=== PATIENT | female | born 1935 | race Caucasian/White ===

== ENCOUNTER 2016-08-25 10:57 | Inpatient (IN) | payer MEDICARE, BC ==
[~2016-08-25] VITALS: Ht 160 cm; Wt 68.0 kg
[~2016-08-25 10:57] MED LIST: GLYB2.5T PO; LISI10TA2 PO; METF-480 PO; MULT-761 PO
[2016-08-25 11:01] VITALS: Ht 160 cm; Wt 68.0 kg
--- NOTE | 2016-08-25 11:09 | ERA ---
ER Documentation Chief Complaint Date/Time DATE: 08/25/16 TIME: 11:08 Chief Complaint Dizziness HPI The patient is a 81-year-old female, presenting to the ER because of generalized weakness, dizziness, headache and abdominal pain that began this morning. The dizziness has gotten better, however she is still complaining of occipital headache. She denies fever, chills, neck pain, chest pain, dyspnea. She complains of diffuse abdominal pain, associated with nausea, vomiting, diarrhea. She has had multiple episodes of vomiting and diarrhea today, denies hematochezia, hematemesis, dysuria. She does not smoke or drink Past medical history: CAD, diabetes mellitus, hypertension, chronic kidney disease. She had a fracture left knee about a month ago, was treated nonsurgically Past surgical history: Stent PCI, cholecystectomy, hemorrhoidectomy ROS All systems reviewed and are negative except as per history of present illness. Medications Home Meds Reported Medications Cholecalciferol* (Vitamin D3*) 1,000 Unit Tablet, 1000 UNIT PO DAILY, TAB 08/25/16 Cyanocobalamin* (Vitamin B12*) 100 Mcg Tab, 100 MCG PO DAILY, TAB 08/25/16 Folic Acid* (Folic Acid*) 1 Mg Tablet, 1 MG PO DAILY, TAB 08/25/16 Rosuvastatin Calcium* (Crestor*) 5 Mg Tablet, 5 MG PO ON FRIDAYS, #30 TAB 08/25/16 Metoprolol Succinate* (Toprol XL*) 25 Mg Tab.sr.24h, 25 MG PO DAILY, #30 TAB 08/25/16 Sitagliptin* (Januvia*) 50 Mg Tablet, 50 MG PO DAILY, #30 TAB 08/25/16 Glimepiride* (Glimepiride*) 4 Mg Tablet, 4 MG PO WITH BREAKFAST DINNE, TAB 08/25/16 Amlodipine Besylate* (Amlodipine Besylate*) 2.5 Mg Tablet, 2.5 MG PO DAILY, #30 TAB 08/25/16 Metformin Hcl* (Metformin Hcl*) 500 Mg Tablet, 500 MG PO WITH BREAKFAST DINNE, # 30 TAB 08/25/16 Lisinopril* (Lisinopril*) 20 Mg Tablet, 20 MG PO DAILY, #30 TAB 08/25/16 Multivitamin (MULTI VITAMIN DAILY) 1 Each Tablet, 1 EACH PO DAILY 10/06/12 Discontinued Reported Medications Glyburide* (Diabeta*) 2.5 Mg Tablet, 10 MG PO BID 10/06/12 Metformin* (Glucophage*) 850 Mg Tablet, 850 MG PO TID 10/06/12 Lisinopril* (Lisinopril*) 10 Mg Tablet, 20 MG PO PM 10/06/12 Allergies Allergies: Coded Allergies: Metronidazole HCl (Verified Allergy, Unknown, UNKNOWN, 08/25/16) ampicillin (Verified Allergy, Unknown, UNKNOWN, 08/25/16) ciprofloxacin (Verified Allergy, Unknown, UNKNOWN, 08/25/16) ciprofloxacin HCl (Verified Allergy, Unknown, UNKNOWN, 08/25/16) metronidazole (Verified Allergy, Unknown, UNKNOWN, 08/25/16) PMhx/Soc History of Surgery: Yes (CHOLECYSTECTOMY/LT BREAST SX) Anesthesia Reaction: No Hx Neurological Disorder: No Hx Respiratory Disorders: No Hx Psychiatric Problems: No Hx Miscellaneous Medical Probl: No Hx Alcohol Use: No Hx Substance Use: No Hx Tobacco Use: No Physical Exam Vitals Vital Signs Date Time Temp Pulse Resp B/P Pulse Ox O2 Delivery O2 Flow Rate FiO2 08/25/16 12:47 98.9 105 16 131/58 100 Room Air 08/25/16 11:01 97.6 98 18 147/77 98 Physical Exam Const: No acute distress. Very anxious Head: Atraumatic. Eyes: Normal Conjunctiva. ENT: Normal External Ears, Nose and Mouth. Neck: Full range of motion. No meningismus. Resp: Clear to auscultation bilaterally. Cardio: Regular rate and rhythm. Abd: Soft, non distended, normal bowel sounds, non tender. Skin: No petechiae or rashes. Back: No midline or flank tenderness. Ext: No cyanosis, or edema. Mild left calf tenderness Neur: Awake and alert. No focal deficit Psych: Normal Mood and Affect. Result Diagram: 08/25/16 1130 08/25/16 1130 Results 24 hrs Laboratory Tests Test 08/25/16 11:30 08/25/16 12:30 White Blood Count 21.410^3/ul Red Blood Count 3.9710^6/ul Hemoglobin 12.5g/dl Hematocrit 37.5% Mean Corpuscular Volume 94.5fl Mean Corpuscular Hemoglobin 31.5pg Mean Corpuscular Hemoglobin Concent 33.3g/dl Red Cell Distribution Width 12.9% Platelet Count 57404^3/UL Mean Platelet Volume 10.5fl Neutrophils % 81.2% Lymphocytes % 7.4% Monocytes % 8.6% Eosinophils % 2.0% Basophils % 0.1% Nucleated Red Blood Cells % 0.0/100WBC Neutrophils # 17.310^3/ul Lymphocytes # 1.610^3/ul Monocytes # 1.910^3/ul Eosinophils # 0.410^3/ul Basophils # 0.010^3/ul Nucleated Red Blood Cells # 0.010^3/ul Prothrombin Time 13.0Sec Prothrombin Time Ratio 1.0 INR International Normalized Ratio 0.98 Activated Partial Thromboplast Time 25.0Sec Sodium Level 133mmol/L Potassium Level 5.2mmol/L Chloride Level 97mmol/L Carbon Dioxide Level 20mmol/L Anion Gap 21 Blood Urea Nitrogen 25mg/dl Creatinine 1.01mg/dl Glucose Level 275mg/dl Calcium Level 11.1mg/dl Total Bilirubin 0.3mg/dl Direct Bilirubin 0.00mg/dl Indirect Bilirubin 0.3mg/dl Aspartate Amino Transf (AST/SGOT) 56IU/L Alanine Aminotransferase (ALT/SGPT) 56IU/L Alkaline Phosphatase 93IU/L Total Protein 8.2g/dl Albumin 5.1g/dl Globulin 3.10g/dl Albumin/Globulin Ratio 1.64 Lipase 245U/L Lactic Acid Level 4.6mmol/L Current Medications Medications (Trade) Dose Ordered Sig/Chayo Route PRN Reason Start Time Stop Time Status Last Admin Dose Admin Vancomycin HCl 250 ml @ 125 mls/hr ONCE IVPB 08/25/16 13:00 08/25/16 14:59 Piperacillin Sod/ Tazobactam Sod 100 ml @ 200 mls/hr ONCE ONCE IVPB 08/25/16 13:00 08/25/16 13:29 Sodium Chloride (NS) 2,110 ml @ 2,110 mls/hr BOLUS X1 ONCE IV 08/25/16 13:00 08/25/16 13:59 Procedures/[address] [address] Radiology Main Line: [phone] DIAGNOSTIC IMAGING REPORT Patient: LUNA CABRERA : 1935 Age: 81 Sex: F MR #: [id number] DOS: 08/25/16 0000 Ordering MD: VENKATESH EVERETT MD Location: E/R Room/Bed: PROCEDURE: US DVT. CLINICAL INDICATION: Lower extremity pain. TECHNIQUE: Multiple longitudinal and transverse images of the left lower extremity veins were obtained with gay scale and color Doppler imaging. 2D grayscale measurements with compression, color Doppler flow, and augmentation was performed. The calf veins were interrogated as well. COMPARISON: No prior studies are available for comparison. FINDINGS: The left common femoral, superficial femoral and popliteal veins are normally compressible throughout. Color flow demonstrates normal filling of the vessel. Normal waveforms are visualized and there is normal response to augmentation. IMPRESSION: 1. No evidence of a deep vein thrombosis involving the left lower extremity. RPTAT: [facility] Physician Shimon Date Time Electronically viewed and signed by Physician Shimon on 08/25/2016 11: 47 JH/ CC: VENKATESH EVERETT MD [place] [address] Radiology Main Line: [phone] DIAGNOSTIC IMAGING REPORT Patient: LUNA CABRERA : 1935 Age: 81 Sex: F MR #: [id number] DOS: 08/25/16 1117 Ordering MD: VENKATESH EVERETT MD Location: E/R Room/Bed: PROCEDURE: XR Chest. CLINICAL INDICATION: Abdominal pain TECHNIQUE: Single frontal view of the chest was obtained COMPARISON: None FINDINGS: The heart and mediastinum are within normal limits. The lungs are clear. There is no pleural effusion or pneumothorax. RPTAT: AA IMPRESSION: No acute disease. .Josh Escobar MD, MD Date Time Electronically viewed and signed by .Josh Escobar MD, MD on 08/25/2016 12: 54 .S/ CC: VENKATESH EVERETT MD [place] [address] Radiology Main Line: [phone] DIAGNOSTIC IMAGING REPORT Patient: LUNA CABRERA : 1935 Age: 81 Sex: F MR #: [id number] DOS: 08/25/16 1117 Ordering MD: VENKATESH EVERETT MD Location: E/R Room/Bed: PROCEDURE: CT Brain without contrast. CLINICAL INDICATION: Headaches TECHNIQUE: A CT of the brain was performed on a multidetector CT scanner utilizing axial sections from the skull base through the vertex without contrast. Images were reviewed on a high-resolution PACS workstation. Exam CTDI = 45.01 mGy and the DLP = 720.23 mGy-cm. One or more of the following dose reduction techniques were used: Automated exposure control Adjustment of the mA and/or kV according to patient size. Use of iterative reconstruction technique. COMPARISON: None available FINDINGS: Mild diffuse cerebral and cerebellar atrophy is present. There is proportionate dilatation of the ventricular system and sulci in a symmetric fashion. There is prominence of the extraaxial spaces secondary to atrophy. There is no evidence of intracranial hemorrhage, mass effect or midline shift. No abnormal intra-axial or extra-axial fluid collections are seen. The density of the brain is normal and the gay/white matter differentiation is well preserved. Mild patchy diffuse deep white matter microangiopathic ischemic change is seen. The osseous structures are unremarkable. Paranasal sinuses are clear. Vascular calcifications are identified. IMPRESSION: 1. No intracranial hemorrhage, mass effect or midline shift. 2. Mild generalized atrophy. Mild microangiopathic ischemic change. 3. Intracranial atherosclerosis. RPTAT: BB .Sylvester Bowen MD, MD Date Time Electronically viewed and signed by .Sylvester Bowen MD, on 08/25/2016 12:08 .O/ CC: VENKATESH EVERETT MD [place] [address] Radiology Main Line: [phone] DIAGNOSTIC IMAGING REPORT Patient: LUNA CABRERA : 1935 Age: 81 Sex: F MR #: [id number] DOS: 08/25/16 1117 Ordering MD: VENKATESH EVERETT MD Location: E/R Room/Bed: PROCEDURE: CT Abdomen and Pelvis without contrast. CLINICAL INDICATION: Abdominal pain weakness. TECHNIQUE: CT scan of the abdomen and pelvis without contrast was performed on a multidetector high-resolution CT scanner. The patient was scanned without intravenous contrast. Coronal and sagittal reformatted images were obtained from the axial source images. Images were reviewed on a high-resolution PACS workstation. The total exam CTDI equals 11.03 mGy and the total exam DLP equals 594.70 mGy-cm. One or more of the following dose reduction techniques were used: Automated exposure control. Adjustment of the mA and/or kV according to patient size. Use of iterative reconstruction technique. COMPARISON: None FINDINGS: CT abdomen: The lung bases are clear. The heart size is normal, without pericardial thickening or effusion. Mitral annulus heavy calcifications are present. The liver is normal in size and density without focal mass or intrahepatic biliary dilatation. The spleen is normal in size and homogeneous in density. The stomach is partially collapsed, but is grossly unremarkable. The pancreas as visualized is normal. There is a punctate calcification in the head of the pancreas. There is no pancreatic ductal dilatation. There is no pancreatic atrophy. The gallbladder is surgically absent. There is no evidence for biliary dilatation. There is approximately 1 cm low density nodule in the left adrenal gland most consistent with adenoma. The kidneys are symmetrically unremarkable as well. No renal calculus or obstructive uropathy or mass lesion is seen. Mild prominent lymph nodes are seen in the upper abdomen measures up to 1.2 cm in short axis in the andrew hepatis. The aorta is of normal caliber. Aortic vascular calcifications are present. There is no retroperitoneal lymphadenopathy. The andrew hepatis region is clear. Scattered diverticula are seen in the descending and sigmoid colon without evidence of acute diverticulitis. There is a small hiatal hernia. CT pelvis: The small bowel loops situated within the pelvis are unremarkable. The appendix is normal. The pelvic organs are normal. The pelvic sidewalls and inguinal regions are clear. No mass, lymphadenopathy, or free fluid is seen. No acute inflammation is seen. The surrounding osseous structures are remarkable for degenerative spondylosis of the spine. No osteolytic or osteoblastic lesion is detected. IMPRESSION: 1. No mass, lymphadenopathy, or focal acute inflammatory process is identified. 2. Scattered diverticula in the left colon without evidence of acute diverticulitis. 3. Normal appendix. 4. Status post cholecystectomy. No biliary ductal dilatation. 5. Small hiatal hernia. 6. A punctate calcification in the pancreatic head with no additional findings of pancreatic atrophy or pancreatic ductal dilatation to suggest chronic pancreatitis. No evidence of acute pancreatitis. 7. Mildly prominent upper abdominal lymph nodes. 8. Aortoiliac atherosclerosis. RPTAT: BB .Sylvester Bowen MD, MD Date Time Electronically viewed and signed by .Sylvester Bowen MD, MD on 08/25/2016 12:14 .O/ CC: VENKATESH EVERETT MD EKG: Read by emergency physician Rate/Rhythm: Normal Sinus Rhythm 98 beats/min QRS, ST, T-waves: No ST elevation, no T inversion, right rojas axis Impression: Abnormal EKG UA pending MEDICAL MAKING DECISION: The patient is a 81-year-old female, presenting with acute septic shock, acute abdominal pain of unclear etiology, acute dehydration , acute hypercalcemia, acute hyperkalemia. She was treated with vancomycin IV, Zosyn IV, normal saline 30 mL/kg IV with good response. The differential diagnoses considered include but are not limited to colitis, C. difficile colitis, food poisoning, pneumonia, cystitis, pyelonephritis Admit MDM: Patient's infectious symptoms have not stabilized and the patient is at risk of rapid decompensation. The patient will be admitted for careful hydration, antibiotic therapy, and infectious source control. Severe Sepsis criteria: Infectious source: Unknown End organ damage indicated by: Lactate > 2.0 mmol/L Sepsis Management: Time of recognition of severe sepsis/septic shock:12:40 PM Within 3 hours of recognition: Blood cultures x 2 before broad-spectrum antibiotics: Yes 30 ml/kg NS bolus completed Initial lactate 4.6 Repeat lactate pending Critical Care: Critical care time 35 minutes excluding billable procedure Emergent fluid management while maintaining close respiratory support. Provision of immediate and broad-spectrum antibiotic therapy. Simultaneous assessment for possible sources in order to direct targeted therapy. Consideration for invasive and chemical support to prevent cardiopulmonary collapse. Septic Shock Assessment: Any lactic acid > 4.0 yes Persistent hypotension (SBP < 90 or 40 mmHg drop, MAP < 65) despite 30 mL/kg IV fluid bolusno Volume Re-assessment for Septic Shock (post 30 ml/kg bolus): Temp98.9, BP131/58, HR105, RR16, Pox 100% Heart regular tachycardic Lungs no crackles Skin Warm & dry & pink Cap Refill less than 2 seconds Peripheral pulses radially present Persistent Hypotension Treatment: Comfort care no Central line no Vasopressor started No I considered further perfusion assessment with CVP measurement, SCVO2, bedside ultrasound volume assessment, passive leg raise, trial of further fluid bolus. And proceeded with IVF Departure Diagnosis: Primary Impression: Septic shock Additional Impressions: Dizziness Abdominal pain Hypercalcemia Dehydration Hyperkalemia Condition: Critical Comments I discussed the findings with the patient. I discussed the patient with the on- call hospitalist Dr Miles at 1:10 pm who was made aware of the lab, the treatment , the patient condition. The patient is admitted to VENKATESH Willett MD Aug 25, 2016 11:08
[2016-08-25 11:38] LABS: ADD SCAN DIFF NO
[2016-08-25 11:42] LABS: ABNORMAL IP MESSAGE 1; BASOPHILS % 0.1 % (0.0-2.0); EOSINOPHILS # 0.4 10^3/ul (0.0-0.5); HEMATOCRIT 37.5 % (37.0-47.0); HEMOGLOBIN 12.5 g/dl (12.0-16.0); LYMPHOCYTES # 1.6 10^3/ul (0.8-2.9); LYMPHOCYTES % 7.4 % (15.0-51.0); MEAN CORPUSCULAR HEMOGLOBIN 31.5 pg (29.0-33.0); MEAN CORPUSCULAR HGB CONC 33.3 g/dl (32.0-37.0); MEAN CORPUSCULAR VOLUME 94.5 fl (82.0-101.0); MEAN PLATELET VOLUME 10.5 fl (7.4-10.4); MONOCYTE # 1.9 10^3/ul (0.3-0.9); MONOCYTES % 8.6 % (0.0-11.0); NEUTROPHIL # 17.3 10^3/ul (1.6-7.5); NEUTROPHILS % 81.2 % (39.0-77.0); PLATELET COUNT 215 10^3/UL (140-415); RED BLOOD COUNT 3.97 10^6/ul (4.20-5.40); RED CELL DISTRIBUTION WIDTH 12.9 % (11.5-14.5); WHITE BLOOD COUNT 21.4 10^3/ul (4.8-10.8)
[2016-08-25] MEDS ORDERED: LISI20TA11 PO (11:46)
[2016-08-25] MEDS ORDERED: AMLO2.5T78 PO (11:47)
[2016-08-25] MEDS ORDERED: METF500T4 PO (11:47)
--- NOTE | 2016-08-25 11:47 | RADRPT ---
PROCEDURE: US DVT. CLINICAL INDICATION: Lower extremity pain. TECHNIQUE: Multiple longitudinal and transverse images of the left lower extremity veins were obta ined with gay scale and color Doppler imaging. 2D grayscale measurements with compression, color D oppler flow, and augmentation was performed. The calf veins were interrogated as well. COMPARISON: No prior studies are available for comparison. FINDINGS: The left common femoral, superficial femoral and popliteal veins are normally compressible throughou t. Color flow demonstrates normal filling of the vessel. Normal waveforms are visualized and there is normal response to augmentation. IMPRESSION: 1. No evidence of a deep vein thrombosis involving the left lower extremity. RPTAT: [facility] Physician Shimon Date Time Electronically viewed and signed by Physician Shimon on 08/25/2016 11:47 /
[2016-08-25] MEDS ORDERED: GLIM4TAB PO (11:48)
[2016-08-25] MEDS ORDERED: SITA50TA2 PO (11:48)
[2016-08-25] MEDS ORDERED: METO25TA7 PO (11:49)
[2016-08-25] MEDS ORDERED: CYAN100 PO (11:50)
[2016-08-25] MEDS ORDERED: ROSU5TAB5 PO (11:50)
[2016-08-25] MEDS ORDERED: FOLI-49 PO (11:50)
[2016-08-25] MEDS ORDERED: CHOL100062 PO (11:51)
[2016-08-25 12:01] LABS: INR 0.98
[2016-08-25 12:04] LABS: ALBUMIN 5.1 g/dl (3.3-4.9); ALBUMIN/GLOBULIN RATIO 1.64; BILIRUBIN,INDIRECT 0.3 mg/dl (0-1.1); BILIRUBIN,TOTAL 0.3 mg/dl (0.2-1.3); CALCIUM 11.1 mg/dl (8.4-10.2); CREATININE 1.01 mg/dl (0.44-1.00); POTASSIUM 5.2 mmol/L (3.5-5.1); TOTAL PROTEIN 8.2 g/dl (6.1-8.1)
--- NOTE | 2016-08-25 12:09 | RADRPT ---
PROCEDURE: CT Brain without contrast. CLINICAL INDICATION: Headaches TECHNIQUE: A CT of the brain was performed on a multidetector CT scanner utilizing axial sections from the skull base through the vertex without contrast. Images were reviewed on a high-resolution [employer] workstation. Exam CTDI = 45.01 mGy and the DLP = 720.23 mGy-cm. One or more of the following dose reduction techniques were used: Automated exposure control Adjustment of the mA and/or kV according to patient size. Use of iterative reconstruction technique. COMPARISON: None available FINDINGS: Mild diffuse cerebral and cerebellar atrophy is present. There is proportionate dilatation of the v entricular system and sulci in a symmetric fashion. There is prominence of the extraaxial spaces sec ondary to atrophy. There is no evidence of intracranial hemorrhage, mass effect or midline shift. N o abnormal intra-axial or extra-axial fluid collections are seen. The density of the brain is ismael l and the gay/white matter differentiation is well preserved. Mild patchy diffuse deep white matte r microangiopathic ischemic change is seen. The osseous structures are unremarkable. Paranasal s inuses are clear. Vascular calcifications are identified. IMPRESSION: 1. No intracranial hemorrhage, mass effect or midline shift. 2. Mild generalized atrophy. Mild microangiopathic ischemic change. 3. Intracranial atherosclerosis. RPTAT: BB .Sylvester Bowen MD, Date Time Electronically viewed and signed by .Sylvester Bowen MD, on 08/25/2016 12:08 .O/
--- NOTE | 2016-08-25 12:14 | RADRPT ---
PROCEDURE: CT Abdomen and Pelvis without contrast. CLINICAL INDICATION: Abdominal pain weakness. TECHNIQUE: CT scan of the abdomen and pelvis without contrast was performed on a multidetector hig h-resolution CT scanner. The patient was scanned without intravenous contrast. Coronal and sagittal reformatted images were obtained from the axial source images. Images were reviewed on a high-resol [employer] PACS workstation. The total exam CTDI equals 11.03 mGy and the total exam DLP equals 594.70 mG y-cm. One or more of the following dose reduction techniques were used: Automated exposure control. Adjustment of the mA and/or kV according to patient size. Use of iterative reconstruction technique. COMPARISON: None FINDINGS: CT abdomen: The lung bases are clear. The heart size is normal, without pericardial thickening or effusion. Baldemar ral annulus heavy calcifications are present. The liver is normal in size and density without focal mass or intrahepatic biliary dilatation. The spleen is normal in size and homogeneous in density. The stomach is partially collapsed, but is gr ossly unremarkable. The pancreas as visualized is normal. There is a punctate calcification in the head of the pancreas. There is no pancreatic ductal dilatation. There is no pancreatic atrophy. Th e gallbladder is surgically absent. There is no evidence for biliary dilatation. There is approxima tely 1 cm low density nodule in the left adrenal gland most consistent with adenoma. The kidneys are symmetrically unremarkable as well. No renal calculus or obstructive uropathy or mass lesion is se en. Mild prominent lymph nodes are seen in the upper abdomen measures up to 1.2 cm in short axis in the andrew hepatis. The aorta is of normal caliber. Aortic vascular calcifications are present. There is no retroperit yeboah lymphadenopathy. The andrew hepatis region is clear. Scattered diverticula are seen in the de scending and sigmoid colon without evidence of acute diverticulitis. There is a small hiatal hernia . CT pelvis: The small bowel loops situated within the pelvis are unremarkable. The appendix is normal. The pelvi c organs are normal. The pelvic sidewalls and inguinal regions are clear. No mass, lymphadenopath y, or free fluid is seen. No acute inflammation is seen. The surrounding osseous structures are re markable for degenerative spondylosis of the spine. No osteolytic or osteoblastic lesion is detecte d. IMPRESSION: 1. No mass, lymphadenopathy, or focal acute inflammatory process is identified. 2. Scattered diverticula in the left colon without evidence of acute diverticulitis. 3. Normal appendix. 4. Status post cholecystectomy. No biliary ductal dilatation. 5. Small hiatal hernia. 6. A punctate calcification in the pancreatic head with no additional findings of pancreatic atroph y or pancreatic ductal dilatation to suggest chronic pancreatitis. No evidence of acute pancreatiti s. 7. Mildly prominent upper abdominal lymph nodes. 8. Aortoiliac atherosclerosis. RPTAT: BB .Sylvester Bowen MD, MD Date Time Electronically viewed and signed by .Sylvester Bowen MD, MD on 08/25/2016 12:14 .O/
[2016-08-25 12:47] VITALS: TEMP 98.9
--- NOTE | 2016-08-25 12:54 | RADRPT ---
PROCEDURE: XR Chest. CLINICAL INDICATION: Abdominal pain TECHNIQUE: Single frontal view of the chest was obtained COMPARISON: None FINDINGS: The heart and mediastinum are within normal limits. The lungs are clear. There is no pleural effusion or pneumothorax. RPTAT: AA IMPRESSION: No acute disease. .Josh Escobar MD, Date Time Electronically viewed and signed by .Josh Escobar MD, on 08/25/2016 12:54 .S/
[2016-08-25] MEDS ORDERED: SOD CHLORIDE 0.9% 2,110 ML IV ONE (13:00)
[2016-08-25] MEDS ORDERED: VANCOMYCIN 1 GM (PMX) 250 ML IVPB SCH (13:00)
[2016-08-25] MEDS ORDERED: PIPER-TAZO 3.375 GM IV (PMX) 100 ML IVPB ONE (13:00)
--- NOTE | 2016-08-25 13:13 | HP ---
Date/Time of Note Date/Time of Note DATE: 08/25/16 TIME: 13:13 Assessment/Plan VTE Prophylaxis VTE Prophylaxis Intervention: SCD's Assessment/Plan Assessment/Plan 81 yo F with pmhx DM2, CAD sp PCI, htn presenting with abd pain, found to have leukocytosis and lactic acidosis. Clinical picture concerning for sepsis, possibly from urinary source #sepsis with resultant lactic acidosis -empiric ceftriaxone pending urine/blood culture data #DM2: SSI, ac1 #CAD sp PCI, HTN: cont home meds DVT prophx general diet HPI/ROS Admit Date/Time Admit Date/Time Hx of Present Illness 81 yo F with pmhx DM2 on oral agents, HTN, CAD sp PCI presents with 1 day of abd pain. Pt was in her usual state of health until this AM. Woke up with severe abd pain and per ED notes was initially complaining of generalized weakness. No fevers/chills/nausea/vomiting. Also has a headache. No dysuria 10pROS neg except as per HPI PMH/Family/Social Past Surgical History remote cholecystectomy Social History lives alone in the community Smoking Status: Never smoker Exam/Review of Systems Vital Signs Vitals Vital Signs Date Time Temp Pulse Resp B/P Pulse Ox O2 Delivery O2 Flow Rate FiO2 08/25/16 12:47 98.9 105 16 131/58 100 Room Air Exam Exam nad, alert EOMI MM dry lungs clear no mrg abd soft, ntnd no le edema no rashes CN 2-12 grossly intact moves exts freely CT results reviewed, no itraabd pathology UA with LE, WBCs, bacteria WBCs quite high +lactic acid CXR clear Labs Result Diagram: 08/25/16 1130 08/25/16 1130 Medications Medications Current Medications Vancomycin HCl 250 ml @ 125 mls/hr ONCE IVPB ; Start 08/25/16 at 13:00; Stop at 14:59 Piperacillin Sod/ Tazobactam Sod (Zosyn 3.375gm/ 100 ml (Pmx)) 100 ml @ 200 mls /hr ONCE ONCE IVPB ; Start 08/25/16 at 13:00; Stop 08/25/16 at 13:29 LEAH CANELA MD Aug 25, 2016 13:13
[2016-08-25 14:04] LABS: ADD UMIC YES; UR ASCORBIC ACID NEGATIVE (NEGATIVE); UR BACTERIA FEW /HPF (NONE SEEN); UR BILIRUBIN (Dip) NEGATIVE (NEGATIVE); UR BLOOD (Dip) NEGATIVE (NEGATIVE); UR CLARITY SLIGHTLY CLOUDY (CLEAR); UR COLOR YELLOW (YELLOW); UR GLUCOSE (Dip) NEGATIVE (NEGATIVE); UR KETONES (Dip) 2+ mg/dL (NEGATIVE); UR LEUKOCYTE ESTERASE (Dip) 1+ Leu/ul (NEGATIVE); UR MUCUS FEW /HPF (NONE SEEN); UR NITRITE (Dip) POSITIVE (NEGATIVE); UR RBC 2 /HPF (0-5); UR SPECIFIC GRAVITY (Dip) 1.018 (1.003-1.030); UR SQUAMOUS EPITHELIAL CELL FEW /HPF (FEW); UR TOTAL PROTEIN (Dip) NEGATIVE (NEGATIVE); UR UROBILINOGEN (Dip) NEGATIVE (NEGATIVE)
[2016-08-25] MEDS ORDERED: NACL 0.9% 3 ML SYG IV SCH (14:30)
[2016-08-25] MEDS ORDERED: HYDROCODONE/APAP (5/325) TAB PO PRN (14:30)
[2016-08-25] MEDS ORDERED: ONDANSETRON 4 MG TAB PO PRN (14:30)
[2016-08-25] MEDS ORDERED: MAGNESIUM HYDROXIDE 30ML CUP PO PRN (14:30)
[2016-08-25] MEDS ORDERED: METOCLOPRAMIDE 10 MG INJ IV PRN (14:30)
[2016-08-25] MEDS ORDERED: ACETAMINOPHEN 325 MG TAB PO PRN (14:30)
[2016-08-25] MEDS ORDERED: ONDANSETRON 4 MG INJ IV PRN (14:30)
[2016-08-25] MEDS ORDERED: DOCUSATE SODIUM 100 MG CAP PO PRN (14:30)
[2016-08-25] MEDS: CEFTRIAXONE 2 GM/50 ML (PMX) 50 ML IVPB SCH ×2 (14:30→18:30)
[2016-08-25] MEDS ORDERED: NON-FORMULARY/PATIENT OWN MED (Rosuvastatin Calcium* (Crestor*) 5 MG) PO SCH (14:30)
[2016-08-25] MEDS ORDERED: DEXTROSE 50% 50 ML SYRINGE IV PRN ×2 (15:00)
[2016-08-25] MEDS ORDERED: GLUCOSE GEL 15 GRAM TUBE BUCCAL PRN (15:00)
[2016-08-25] MEDS ORDERED: GLUCOSE GEL 15 GRAM TUBE PO PRN ×2 (15:00)
[2016-08-25] MEDS ORDERED: GLUCAGON 1 MG INJ IM PRN (15:00)
[2016-08-25] MEDS ORDERED: ACETAMINOPHEN 325 MG TAB PO ONE (15:30)
[2016-08-25] MEDS ORDERED: SOD CHLORIDE 0.9% 500 ML IV ONE (16:00)
[2016-08-25] MEDS: INSULIN ASPART [NOVOLOG] 3 ML PEN SC SCH ×2 (19:44→23:00)
[2016-08-25 19:48] VITALS: BP 128/61; RESP 18
[2016-08-25] MEDS: ACCU-CHEK XX SCH (19:50)
[2016-08-26] MEDS: ACCU-CHEK XX SCH ×4 (01:42→20:10)
[2016-08-26 04:11] VITALS: BP 111/53; RESP 16
[2016-08-26 05:39] LABS: ADD SCAN DIFF NO
[2016-08-26 05:49] LABS: BASOPHILS % 0.1 % (0.0-2.0); EOSINOPHILS # 0.8 10^3/ul (0.0-0.5); HEMATOCRIT 27.6 % (37.0-47.0); HEMOGLOBIN 8.9 g/dl (12.0-16.0); LYMPHOCYTES # 4.1 10^3/ul (0.8-2.9); LYMPHOCYTES % 26.8 % (15.0-51.0); MEAN CORPUSCULAR HEMOGLOBIN 30.9 pg (29.0-33.0); MEAN CORPUSCULAR HGB CONC 32.2 g/dl (32.0-37.0); MEAN CORPUSCULAR VOLUME 95.8 fl (82.0-101.0); MEAN PLATELET VOLUME 10.7 fl (7.4-10.4); MONOCYTES % 6.6 % (0.0-11.0); NEUTROPHIL # 9.3 10^3/ul (1.6-7.5); NEUTROPHILS % 61.1 % (39.0-77.0); PLATELET COUNT 155 10^3/UL (140-415); RED BLOOD COUNT 2.88 10^6/ul (4.20-5.40); RED CELL DISTRIBUTION WIDTH 13.3 % (11.5-14.5); WHITE BLOOD COUNT 15.3 10^3/ul (4.8-10.8)
[2016-08-26 06:08] LABS: CALCIUM 8.6 mg/dl (8.4-10.2); CREATININE 0.94 mg/dl (0.44-1.00); POTASSIUM 4.1 mmol/L (3.5-5.1)
[2016-08-26 07:37] VITALS: BP 113/56; RESP 16
[2016-08-26] MEDS: LISINOPRIL 20 MG TAB PO SCH (08:10)
[2016-08-26] MEDS: CYANOCOBALAMIN 100 MCG TAB PO SCH (08:10)
[2016-08-26] MEDS: CHOLECALCIFEROL 1,000 UNIT TAB PO SCH (08:10)
[2016-08-26] MEDS: FOLIC ACID 1 MG TAB PO SCH (08:10)
[2016-08-26] MEDS: MULTIVITAMINS THERAPEUTIC TAB PO SCH (08:10)
[2016-08-26] MEDS: AMLODIPINE 2.5 MG TAB PO SCH (08:10)
[2016-08-26] MEDS: METOPROLOL (XL) 25 MG TAB PO SCH (08:11)
[2016-08-26] MEDS: ENOXAPARIN 40 MG/0.4 ML SYG SC SCH (08:12)
[2016-08-26] MEDS: INSULIN ASPART [NOVOLOG] 3 ML PEN SC SCH ×4 (08:17→21:00)
--- NOTE | 2016-08-26 10:54 | PN ---
Date/Time of Note Date/Time of Note DATE: 08/26/16 TIME: 10:54 Assessment/Plan VTE Prophylaxis VTE Prophylaxis Intervention: SCD's Lines/Catheters IV Catheter Type (from Nrsg): Peripheral IV Assessment/Plan Assessment/Plan 81 yo F with pmhx DM2, CAD sp PCI, htn presenting with abd pain, found to have leukocytosis and lactic acidosis. Clinical picture concerning for sepsis, possibly from urinary source #sepsis with resultant lactic acidosis -empiric ceftriaxone pending urine/blood culture data #DM2: SSI, 7s #CAD sp PCI, HTN: cont home meds DVT prophx general diet transfer from tele to med surg Subjective 24 Hr Interval Summary Free Text/Dictation Feels much better. A1c reviewed Exam/Review of Systems Vital Signs Vitals Vital Signs Date Time Temp Pulse Resp B/P Pulse Ox O2 Delivery O2 Flow Rate FiO2 08/26/16 07:37 98.6 88 16 113/56 93 08/25/16 15:45 Room Air Intake and Output 08/25/16 08/25/16 08/26/16 15:00 23:00 07:00 Intake Total 50 ml 620 ml Balance 50 ml 620 ml Exam nad, sitting up in bed no mrg lungs clear abd soft no rashes Results Result Diagram: 08/26/16 0506 08/26/16 0506 Results 24 hrs Laboratory Tests Test 08/25/16 11:30 08/25/16 12:30 08/25/16 13:10 08/25/16 14:40 White Blood Count 21.4 H Red Blood Count 3.97 L Hemoglobin 12.5 Hematocrit 37.5 Mean Corpuscular Volume 94.5 Mean Corpuscular Hemoglobin 31.5 Mean Corpuscular Hemoglobin Concent 33.3 Red Cell Distribution Width 12.9 Platelet Count 215 Mean Platelet Volume 10.5 H Neutrophils % 81.2 H Lymphocytes % 7.4 L Monocytes % 8.6 Eosinophils % 2.0 Basophils % 0.1 Nucleated Red Blood Cells % 0.0 Neutrophils # 17.3 H Lymphocytes # 1.6 Monocytes # 1.9 H Eosinophils # 0.4 Basophils # 0.0 Nucleated Red Blood Cells # 0.0 Prothrombin Time 13.0 Prothrombin Time Ratio 1.0 INR International Normalized Ratio 0.98 Activated Partial Thromboplast Time 25.0 Sodium Level 133 L Potassium Level 5.2 H Chloride Level 97 Carbon Dioxide Level 20 L Anion Gap 21 H Blood Urea Nitrogen 25 H Creatinine 1.01 H Glucose Level 275 H Hemoglobin A1c 7.7 H Calcium Level 11.1 H Total Bilirubin 0.3 Direct Bilirubin 0.00 Indirect Bilirubin 0.3 Aspartate Amino Transf (AST/SGOT) 56 H Alanine Aminotransferase (ALT/SGPT) 56 Alkaline Phosphatase 93 Total Protein 8.2 H Albumin 5.1 H Globulin 3.10 Albumin/Globulin Ratio 1.64 Lipase 245 Lactic Acid Level 4.6 *H 4.7 *H Urine Color YELLOW Urine Clarity SLIGHTLY CLOUDY A Urine pH 5.0 Urine Specific [place] 1.018 Urine Ketones 2+ H Urine Nitrite POSITIVE A Urine Bilirubin NEGATIVE Urine Urobilinogen NEGATIVE Urine Leukocyte Esterase 1+ H Urine Microscopic RBC 2 Urine Microscopic WBC 12 H Urine Squamous Epithelial Cells FEW Urine Bacteria FEW A Urine Mucus FEW A Urine Hemoglobin NEGATIVE Urine Glucose NEGATIVE Urine Total Protein NEGATIVE Test 08/25/16 16:05 08/25/16 19:06 08/25/16 19:24 08/25/16 19:47 Lactic Acid Level 2.9 H 2.8 H Bedside Glucose 195 169 Test 08/25/16 23:30 08/26/16 05:06 08/26/16 07:48 Bedside Glucose 180 159 White Blood Count 15.3 #H Red Blood Count 2.88 #L Hemoglobin 8.9 #L Hematocrit 27.6 #L Mean Corpuscular Volume 95.8 Mean Corpuscular Hemoglobin 30.9 Mean Corpuscular Hemoglobin Concent 32.2 Red Cell Distribution Width 13.3 Platelet Count 155 # Mean Platelet Volume 10.7 H Neutrophils % 61.1 Lymphocytes % 26.8 Monocytes % 6.6 Eosinophils % 5.0 Basophils % 0.1 Nucleated Red Blood Cells % 0.0 Neutrophils # 9.3 H Lymphocytes # 4.1 H Monocytes # 1.0 H Eosinophils # 0.8 H Basophils # 0.0 Nucleated Red Blood Cells # 0.0 Sodium Level 134 L Potassium Level 4.1 Chloride Level 103 Carbon Dioxide Level 22 Anion Gap 13 # Blood Urea Nitrogen 26 H Creatinine 0.94 Glucose Level 129 # Lactic Acid Level 1.3 Calcium Level 8.6 Medications Medications Current Medications Ceftriaxone Sodium (Rocephin) 50 ml @ 100 mls/hr Q24H IVPB Last administered on 08/25/16t 18:30; Admin Dose 100 MLS/HR; Start 08/25/16 at 14:30 Ondansetron HCl (Zofran Tab) 4 mg Q6H PRN PO NAUSEA AND/OR VOMITING; Start 01/30 at 14:30 Ondansetron HCl (Zofran Inj) 4 mg Q6H PRN IV NAUSEA AND/OR VOMITING; Start 01/30 at 14:30 Metoclopramide HCl (Reglan) 10 mg Q6H PRN IV NAUSEA AND/OR VOMITING; Start 01/30 at 14:30 Acetaminophen (Tylenol Tab) 650 mg Q6H PRN PO PAIN LEVEL 1-3 OR FEVER; Start at 14:30 Acetaminophen/ Hydrocodone Bitart ([place] (5/325)) 1 tab Q6H PRN PO MODERATE PAIN LEVEL 4-6; Start 08/25/16 at 14:30 Docusate Sodium (Colace) 100 mg Q12H PRN PO CONSTIPATION; Start 08/25/16 at 14: 30 Magnesium Hydroxide (Milk Of Mag) 30 ml DAILY PRN PO CONSTIPATION; Start at 14:30 Enoxaparin Sodium (Lovenox) 40 mg DAILY SC Last administered on 08/26/16 08:12 ; Admin Dose 40 MG; Start 08/26/16 at 09:00 Diagnostic Test (Pha) (Accu-Chek) 1 ea 02 XX ; Start 08/26/16 at 02:00 Amlodipine Besylate (Norvasc) 2.5 mg DAILY PO Last administered on 08/26/16 08 :10; Admin Dose 2.5 MG; Start 08/26/16 at 09:00 Cholecalciferol (Vitamin D) 1,000 unit DAILY PO Last administered on 08/26/16 08:10; Admin Dose 1,000 UNIT; Start 08/26/16 at 09:00 Cyanocobalamin (Vitamin B12) 100 mcg DAILY PO Last administered on 08/26/16 08 :10; Admin Dose 100 MCG; Start 08/26/16 at 09:00 Folic Acid (Folic Acid) 1 mg DAILY PO Last administered on 08/26/16 08:10; Admin Dose 1 MG; Start 08/26/16 at 09:00 Lisinopril (Zestril) 20 mg DAILY PO Last administered on 08/26/16 08:10; Admin Dose 20 MG; Start 08/26/16 at 09:00 Metoprolol Succinate (Toprol Xl) 25 mg DAILY PO Last administered on 08/26/16 08:11; Admin Dose 25 MG; Start 08/26/16 at 09:00 Multivitamins Therapeutic (Theragran) 1 tab DAILY PO Last administered on 08:10; Admin Dose 1 TAB; Start 08/26/16 at 09:00 Miscellaneous Information 1 ea NOTE XX ; Start 08/25/16 at 15:00 Glucose (Glutose) 15 gm Q15M PRN PO DECREASED GLUCOSE; Start 08/25/16 at 15:00 Glucose (Glutose) 22.5 gm Q15M PRN PO DECREASED GLUCOSE; Start 08/25/16 at 15: 00 Dextrose (D50w Syringe) 25 ml Q15M PRN IV DECREASED GLUCOSE; Start 08/25/16 at 15:00 Dextrose (D50w Syringe) 50 ml Q15M PRN IV DECREASED GLUCOSE; Start 08/25/16 at 15:00 Glucagon (Glucagen) 1 mg Q15M PRN IM DECREASED GLUCOSE; Start 08/25/16 at 15:00 Glucose (Glutose) 15 gm Q15M PRN BUCCAL DECREASED GLUCOSE; Start 08/25/16 at 15 :00 LEAH CANELA MD Aug 26, 2016 10:54
[2016-08-26 13:30] VITALS: BP 107/51; RESP 16
[2016-08-26] MEDS: CEFTRIAXONE 2 GM/50 ML (PMX) 50 ML IVPB SCH (15:05)
[2016-08-26 20:00] VITALS: BP 119/60; PULSE 80; RESP 18
[2016-08-27] MEDS: ACCU-CHEK XX SCH ×4 (02:39→20:36)
[2016-08-27 02:40] VITALS: BP 134/60; PULSE 72; RESP 19
[2016-08-27 07:44] VITALS: BP 124/59; RESP 18
[2016-08-27] MEDS: FOLIC ACID 1 MG TAB PO SCH (08:14)
[2016-08-27] MEDS: LISINOPRIL 20 MG TAB PO SCH (08:14)
[2016-08-27] MEDS: METOPROLOL (XL) 25 MG TAB PO SCH (08:15)
[2016-08-27] MEDS: CYANOCOBALAMIN 100 MCG TAB PO SCH (08:15)
[2016-08-27] MEDS: AMLODIPINE 2.5 MG TAB PO SCH (08:15)
[2016-08-27] MEDS: MULTIVITAMINS THERAPEUTIC TAB PO SCH (08:15)
[2016-08-27] MEDS: CHOLECALCIFEROL 1,000 UNIT TAB PO SCH (08:16)
[2016-08-27] MEDS: ENOXAPARIN 40 MG/0.4 ML SYG SC SCH (08:20)
[2016-08-27] MEDS: INSULIN ASPART [NOVOLOG] 3 ML PEN SC SCH ×4 (08:20→21:30)
[2016-08-27 15:08] VITALS: BP 117/56; RESP 16
[2016-08-27] MEDS: CEFTRIAXONE 2 GM/50 ML (PMX) 50 ML IVPB SCH (15:29)
--- NOTE | 2016-08-27 16:25 | PN ---
Date/Time of Note Date/Time of Note DATE: 08/27/16 TIME: 16:22 Assessment/Plan VTE Prophylaxis VTE Prophylaxis Intervention: SCD's Lines/Catheters IV Catheter Type (from Nrsg): Saline Lock Assessment/Plan Assessment/Plan 81 yo F presented with sepsis, found to have urine with EColi. Given systemic symptoms on admission (fever notably), clinical picture more consistent with pyelonephritis as opposed to just cystitis plan: talked to pharmacy earlier today about pt's drug allergies. As no info available, will do a test dose of levoflox x 1 in house prior to discharge PO levoflox to start tomorrow. If tolerates, anticipate sending home in the afternoon I had asked the lab for fosfomycin testing, however given clinical scenario more consistent with pyelo than just cystitis this agent would be suboptimal cont all other current meds Subjective 24 Hr Interval Summary Free Text/Dictation Regarding pt's drug allergies, she does not know what any of her adverse reactions/allergies are. I called PCP's office to get more info, was told pt also allergic to sulfa and nitrofurantoin, but again no one had any information about her actual adverse reactions are Exam/Review of Systems Vital Signs Vitals Vital Signs Date Time Temp Pulse Resp B/P Pulse Ox O2 Delivery O2 Flow Rate FiO2 08/27/16 15:08 97.8 77 16 117/56 95 08/27/16 02:40 Room Air Intake and Output 08/26/16 08/26/16 08/27/16 15:00 23:00 07:00 Intake Total 1130 ml 360 ml Balance 1130 ml 360 ml Exam nad, sitting up in bed no mrg lungs clear abd soft no rashes urine and blood with EColi S to bactrim, macrobid, quinolones Results Result Diagram: 08/26/16 0506 08/26/16 0506 Results 24 hrs Laboratory Tests Test 08/26/16 17:10 08/26/16 20:10 08/26/16 21:33 08/27/16 02:35 Bedside Glucose 138 174 145 118 Test 08/27/16 08:10 08/27/16 10:28 08/27/16 12:02 08/27/16 14:53 Bedside Glucose 146 198 178 175 Medications Medications Current Medications Ceftriaxone Sodium (Rocephin) 50 ml @ 100 mls/hr Q24H IVPB Last administered on 08/27/16 15:29; Admin Dose 100 MLS/HR; Start 08/25/16 at 14:30 Ondansetron HCl (Zofran Tab) 4 mg Q6H PRN PO NAUSEA AND/OR VOMITING; Start 01/30 at 14:30 Ondansetron HCl (Zofran Inj) 4 mg Q6H PRN IV NAUSEA AND/OR VOMITING; Start 01/30 at 14:30 Metoclopramide HCl (Reglan) 10 mg Q6H PRN IV NAUSEA AND/OR VOMITING; Start 01/30 at 14:30 Acetaminophen (Tylenol Tab) 650 mg Q6H PRN PO PAIN LEVEL 1-3 OR FEVER; Start at 14:30 Acetaminophen/ Hydrocodone Bitart ([place] (5/325)) 1 tab Q6H PRN PO MODERATE PAIN LEVEL 4-6; Start 08/25/16 at 14:30 Docusate Sodium (Colace) 100 mg Q12H PRN PO CONSTIPATION; Start 08/25/16 at 14: 30 Magnesium Hydroxide (Milk Of Mag) 30 ml DAILY PRN PO CONSTIPATION; Start at 14:30 Enoxaparin Sodium (Lovenox) 40 mg DAILY SC Last administered on 08/27/16 08:20 ; Admin Dose 40 MG; Start 08/26/16 at 09:00 Diagnostic Test (Pha) (Accu-Chek) 1 ea 02 XX Last administered on 08/27/16 02: 39; Admin Dose 1 EA; Start 08/26/16 at 02:00 Amlodipine Besylate (Norvasc) 2.5 mg DAILY PO Last administered on 08/27/16 08 :15; Admin Dose 2.5 MG; Start 08/26/16 at 09:00 Cholecalciferol (Vitamin D) 1,000 unit DAILY PO Last administered on 08/27/16 08:16; Admin Dose 1,000 UNIT; Start 08/26/16 at 09:00 Cyanocobalamin (Vitamin B12) 100 mcg DAILY PO Last administered on 08/27/16 08 :15; Admin Dose 100 MCG; Start 08/26/16 at 09:00 Folic Acid (Folic Acid) 1 mg DAILY PO Last administered on 08/27/16 08:14; Admin Dose 1 MG; Start 08/26/16 at 09:00 Lisinopril (Zestril) 20 mg DAILY PO Last administered on 08/27/16 08:14; Admin Dose 20 MG; Start 08/26/16 at 09:00 Metoprolol Succinate (Toprol Xl) 25 mg DAILY PO Last administered on 08/27/16 08:15; Admin Dose 25 MG; Start 08/26/16 at 09:00 Multivitamins Therapeutic (Theragran) 1 tab DAILY PO Last administered on 08:15; Admin Dose 1 TAB; Start 08/26/16 at 09:00 Miscellaneous Information 1 ea NOTE XX ; Start 08/25/16 at 15:00 Glucose (Glutose) 15 gm Q15M PRN PO DECREASED GLUCOSE; Start 08/25/16 at 15:00 Glucose (Glutose) 22.5 gm Q15M PRN PO DECREASED GLUCOSE; Start 08/25/16 at 15: 00 Dextrose (D50w Syringe) 25 ml Q15M PRN IV DECREASED GLUCOSE; Start 08/25/16 at 15:00 Dextrose (D50w Syringe) 50 ml Q15M PRN IV DECREASED GLUCOSE; Start 08/25/16 at 15:00 Glucagon (Glucagen) 1 mg Q15M PRN IM DECREASED GLUCOSE; Start 08/25/16 at 15:00 Glucose (Glutose) 15 gm Q15M PRN BUCCAL DECREASED GLUCOSE; Start 08/25/16 at 15 :00 LEAH CANELA MD Aug 27, 2016 16:24
[2016-08-27] MEDS: LEVOFLOXACIN 750 MG TABLET PO SCH (17:59)
[2016-08-27 20:00] VITALS: BP 119/63; RESP 18
[2016-08-28 02:00] VITALS: BP 115/57; RESP 18
[2016-08-28] MEDS: ACCU-CHEK XX SCH ×3 (02:00→14:31)
[2016-08-28] MEDS: LEVOFLOXACIN 750 MG TABLET PO SCH (07:49)
[2016-08-28] MEDS: INSULIN ASPART [NOVOLOG] 3 ML PEN SC SCH ×2 (07:54→12:12)
[2016-08-28] MEDS: FOLIC ACID 1 MG TAB PO SCH (08:22)
[2016-08-28] MEDS: MULTIVITAMINS THERAPEUTIC TAB PO SCH (08:22)
[2016-08-28] MEDS: CYANOCOBALAMIN 100 MCG TAB PO SCH (08:23)
[2016-08-28] MEDS: AMLODIPINE 2.5 MG TAB PO SCH (08:23)
[2016-08-28] MEDS: CHOLECALCIFEROL 1,000 UNIT TAB PO SCH (08:23)
[2016-08-28] MEDS: METOPROLOL (XL) 25 MG TAB PO SCH (08:24)
[2016-08-28] MEDS: LISINOPRIL 20 MG TAB PO SCH (08:24)
[2016-08-28 08:29] VITALS: BP 133/63; RESP 16
[2016-08-28] MEDS: ENOXAPARIN 40 MG/0.4 ML SYG SC SCH (09:09)
[2016-08-28] MEDS ORDERED: LEVO750T25 PO (09:46)
--- NOTE | 2016-08-28 09:51 | DS ---
Date/Time of Note Date/Time of Note DATE: 08/28/16 TIME: 09:46 Discharge Summary Admission/Discharge Info Admit Date/Time Aug 25, 2016 at 13:54 Discharge Date/Time Patient Condition: Good Procedures a1c 7.7 7.12 Urine culture EColi Microbiology URINE CULTURE Final Organism 1 ESCHERICHIA COLI COLONY COUNT >100,000 CFU/ml E COLI M.I.C. RX --------- --- AMPICILLIN >=32 R CEFAZOLIN S CEFOTAXIME S CIPROFLOXACIN <=0.25 S GENTAMICIN <=1 S LEVOFLOXACIN <=0.12 S NITROFURANTOIN <=16 S TOBRAMYCIN <=1 S TRIMETHOPRIM/SULFAMETHOXAZOLE <=20 S blood cultures ng 2/2 Hx of Present Illness 81 yo F with pmhx DM2 on oral agents, HTN, CAD sp PCI presents with 1 day of abd pain. Pt was in her usual state of health until this AM. Woke up with severe abd pain and per ED notes was initially complaining of generalized weakness. No fevers/chills/nausea/vomiting. Also has a headache. No dysuria 10pROS neg except as per HPI Hospital Course Pt started on empiric ceftriaxone, cultures returned and she was narrowed to levoflox. Of note, pt with multiple documented drug allergies but neither patient nor PCP's office know what any of the allergic reactions/ADRs are. Advise PCP/pt's pharmacist explore these issues further, consider allergy referral to determine which drugs to which pt truly is allergic. Given systemic symptoms at onset, pt will be treated for pyelonephritis with a total of 7 days of antimicrobial therapy Home Meds Reported Medications Cholecalciferol* (Vitamin D3*) 1,000 Unit Tablet, 1000 UNIT PO DAILY, TAB 08/25/16 Cyanocobalamin* (Vitamin B12*) 100 Mcg Tab, 100 MCG PO DAILY, TAB 08/25/16 Folic Acid* (Folic Acid*) 1 Mg Tablet, 1 MG PO DAILY, TAB 08/25/16 Rosuvastatin Calcium* (Crestor*) 5 Mg Tablet, 5 MG PO ON FRIDAYS, #30 TAB 08/25/16 Metoprolol Succinate* (Toprol XL*) 25 Mg Tab.sr.24h, 25 MG PO DAILY, #30 TAB 08/25/16 Sitagliptin* (Januvia*) 50 Mg Tablet, 50 MG PO DAILY, #30 TAB 08/25/16 Glimepiride* (Glimepiride*) 4 Mg Tablet, 4 MG PO WITH BREAKFAST DINNE, TAB 08/25/16 Amlodipine Besylate* (Amlodipine Besylate*) 2.5 Mg Tablet, 2.5 MG PO DAILY, #30 TAB 08/25/16 Metformin Hcl* (Metformin Hcl*) 500 Mg Tablet, 500 MG PO WITH BREAKFAST DINNE, # 30 TAB 08/25/16 Lisinopril* (Lisinopril*) 20 Mg Tablet, 20 MG PO DAILY, #30 TAB 08/25/16 Multivitamin (MULTI VITAMIN DAILY) 1 Each Tablet, 1 EACH PO DAILY 10/06/12 Discontinued Reported Medications Glyburide* (Diabeta*) 2.5 Mg Tablet, 10 MG PO BID 10/06/12 Metformin* (Glucophage*) 850 Mg Tablet, 850 MG PO TID 10/06/12 Lisinopril* (Lisinopril*) 10 Mg Tablet, 20 MG PO PM 10/06/12 Follow-up Plan PCP within 14 days Primary Care Provider Honey Arreguin Time spent on discharge: > 30 minutes Pending Labs Laboratory Tests Test 08/27/16 10:28 08/27/16 12:02 08/27/16 14:53 08/27/16 17:36 Bedside Glucose 198mg/dL (70-220) 178mg/dL (70-220) 175mg/dL (70-220) 161mg/dL (70-220) Test 08/27/16 20:19 08/27/16 21:40 08/28/16 07:48 Bedside Glucose 152mg/dL (70-220) 128mg/dL (70-220) 142mg/dL (70-220) LEAH CANELA MD Aug 28, 2016 09:51
[2016-08-28 14:23] VITALS: BP 138/66; RESP 16
== END 2016-08-28 16:05 | disposition home or self-care (01) | DRG 872 ==
LOC: E/R 10:57 → MS3 13:54 → MS2 18:50
PROVIDERS: ADMIT Family Medicine; ATTEND Family Medicine
DX: A41.9 Sepsis, unspecified organism (principal); E87.2 Acidosis; E11.65 Type 2 diabetes mellitus with hyperglycemia; E87.8 Other disorders of electrolyte and fluid balance, not elsewhere classified; N12 Tubulo-interstitial nephritis, not specified as acute or chronic; B96.20 Unspecified Escherichia coli [E. coli] as the cause of diseases classified elsewhere; I10 Essential (primary) hypertension; I25.10 Atherosclerotic heart disease of native coronary artery without angina pectoris; R51 Headache; Z79.84 Long term (current) use of oral hypoglycemic drugs; Z95.5 Presence of coronary angioplasty implant and graft; Z90.49 Acquired absence of other specified parts of digestive tract
CPT/HCPCS: 36415; 70450; 71010; 74176; 80048; 80053; 81001; 82962; 83036; 83605; 83690; 85025; 85610; 85730; 87040; 87045; 87075; 87086; 93005; 93971; 96374; 96375; J1650; J1815; J2543; J3370; J3420; J7030; J7040

== ENCOUNTER 2016-09-03 09:43 | Inpatient (IN) | payer MEDICARE, BC ==
[~2016-09-03] VITALS: Ht 157.5 cm; Wt 52.0 kg
[~2016-09-03 09:43] MED LIST changes: +AMLO2.5T78 PO; +CHOL100062 PO; +CYAN100 PO; +FOLI-49 PO; +GLIM4TAB PO; -GLYB2.5T PO; +LEVO750T25 PO; -LISI10TA2 PO; +LISI20TA11 PO; -METF-480 PO; +METF500T4 PO; +METO25TA7 PO; +ROSU5TAB5 PO; +SITA50TA2 PO
[2016-09-03] MEDS ORDERED: SOD CHLORIDE 0.9% 1,000 ML IV STA (09:57)
[2016-09-03] MEDS ORDERED: ONDANSETRON 4 MG INJ IV STA (09:57)
[2016-09-03 10:55] LABS: ADD SCAN DIFF NO
[2016-09-03 11:18] LABS: ALANINE AMINOTRANSFERASE 46 IU/L (13-69); ALBUMIN 4.5 g/dl (3.3-4.9); ALKALINE PHOSPHATASE 69 IU/L (42-121); ANION GAP 28 (8-16); ASPARTATE AMINO TRANSFERASE 38 IU/L (15-46); BILIRUBIN,INDIRECT 0.1 mg/dl (0-1.1); BILIRUBIN,TOTAL 0.1 mg/dl (0.2-1.3); BLOOD UREA NITROGEN 36 mg/dl (7-20); CALCIUM 10.2 mg/dl (8.4-10.2); CARBON DIOXIDE 18 mmol/L (21-31); CHLORIDE 101 mmol/L (97-110); CREATININE 1.33 mg/dl (0.44-1.00); GLUCOSE 194 mg/dl (70-220); POTASSIUM 5.1 mmol/L (3.5-5.1); SODIUM 142 mmol/L (135-144); TOTAL PROTEIN 7.7 g/dl (6.1-8.1)
[2016-09-03 11:23] LABS: INR 0.91; PROTIME 12.2 Sec (12.2-14.2)
[2016-09-03 11:36] LABS: PARTIAL THROMBOPLASTIN TIME 24.7 Sec (25.0-35.0)
[2016-09-03 11:54] LABS: TROPONIN-I < 0.012 ng/ml (0.00-0.12)
[2016-09-03 11:59] LABS: ABNORMAL IP MESSAGE 1; BASOPHIL # 0.1 10^3/ul (0.0-0.1); BASOPHILS % 0.2 % (0.0-2.0); EOSINOPHILS # 1.1 10^3/ul (0.0-0.5); HEMATOCRIT 37.1 % (37.0-47.0); HEMOGLOBIN 12.5 g/dl (12.0-16.0); LYMPHOCYTES # 2.9 10^3/ul (0.8-2.9); LYMPHOCYTES % 10.8 % (15.0-51.0); MEAN CORPUSCULAR HEMOGLOBIN 31.6 pg (29.0-33.0); MEAN CORPUSCULAR HGB CONC 33.7 g/dl (32.0-37.0); MEAN CORPUSCULAR VOLUME 93.9 fl (82.0-101.0); MEAN PLATELET VOLUME 11.3 fl (7.4-10.4); MONOCYTE # 1.7 10^3/ul (0.3-0.9); MONOCYTES % 6.6 % (0.0-11.0); NEUTROPHIL # 20.5 10^3/ul (1.6-7.5); NEUTROPHILS % 77.6 % (39.0-77.0); PLATELET COUNT 258 10^3/UL (140-415); RED BLOOD COUNT 3.95 10^6/ul (4.20-5.40); RED CELL DISTRIBUTION WIDTH 13.4 % (11.5-14.5); WHITE BLOOD COUNT 26.4 10^3/ul (4.8-10.8)
[2016-09-03] MEDS ORDERED: SOD CHLORIDE 0.9% 500 ML IV ONE (12:00)
[2016-09-03 13:21] LABS: ADD UMIC NO; UR ASCORBIC ACID NEGATIVE (NEGATIVE); UR BILIRUBIN (Dip) NEGATIVE (NEGATIVE); UR BLOOD (Dip) NEGATIVE (NEGATIVE); UR CLARITY SLIGHTLY CLOUDY (CLEAR); UR COLOR YELLOW (YELLOW); UR GLUCOSE (Dip) NEGATIVE (NEGATIVE); UR KETONES (Dip) TRACE mg/dL (NEGATIVE); UR LEUKOCYTE ESTERASE (Dip) NEGATIVE Leu/ul (NEGATIVE); UR NITRITE (Dip) NEGATIVE (NEGATIVE); UR RBC 1 /HPF (0-5); UR SPECIFIC GRAVITY (Dip) 1.017 (1.003-1.030); UR TOTAL PROTEIN (Dip) NEGATIVE (NEGATIVE); UR UROBILINOGEN (Dip) NEGATIVE (NEGATIVE)
[2016-09-03] MEDS ORDERED: CEFEPIME 2GM/50 ML (PMX) 50 ML IVPB STA (13:37)
[2016-09-03 14:03] VITALS: TEMP 97.9
--- NOTE | 2016-09-03 14:12 | RADRPT ---
PROCEDURE: XR Chest. CLINICAL INDICATION: Possible Sepsis TECHNIQUE: Single portable view of the chest was obtained COMPARISON: Chest x-ray 08/25/2016 FINDINGS: The cardiomediastinal silhouette is within normal limits. There are atherosclerotic calcifications of the aortic arch. Biapical pleural parenchymal scarring is noted. No pneumothorax, significant pleural effusion, or parenchymal consolidation is identified. There is no significant pulmonary vascular congestion. There are multilevel degenerative changes of the visualized spine. IMPRESSION: No evidence of an acute cardiopulmonary process. RPTAT: PP Physician Simin Date Time Electronically viewed and signed by Physician Simin on 09/03/2016 14:11 CAMELIA/
--- NOTE | 2016-09-03 14:47 | ERA ---
ER Documentation Chief Complaint Date/Time DATE: 09/03/16 TIME: 14:37 Chief Complaint BIB RA FOR EVAL OF NAUSEA VOMITING DIARRHEA HPI 81-year-old female comes in for severe generalized weakness, feeling very sick, has nausea vomiting is nonbloody nonbilious, and some watery diarrhea. Was admitted last week for UTI with sepsis. Was starting to feel better but is now feeling just as bad as she did then. Denies fever. Has chills. ROS All systems reviewed and are negative except as per history of present illness. Medications Home Meds Active Scripts Levofloxacin* (Levaquin*) 750 Mg Tablet, 750 MG PO DAILY for 4 Days, #4 TAB Prov:LEAH CANELA MD 08/28/16 Reported Medications Cholecalciferol* (Vitamin D3*) 1,000 Unit Tablet, 1000 UNIT PO DAILY, TAB 08/25/16 Cyanocobalamin* (Vitamin B12*) 100 Mcg Tab, 100 MCG PO DAILY, TAB 08/25/16 Folic Acid* (Folic Acid*) 1 Mg Tablet, 1 MG PO DAILY, TAB 08/25/16 Rosuvastatin Calcium* (Crestor*) 5 Mg Tablet, 5 MG PO ON FRIDAYS, #30 TAB 08/25/16 Metoprolol Succinate* (Toprol XL*) 25 Mg Tab.sr.24h, 25 MG PO DAILY, #30 TAB 08/25/16 Sitagliptin* (Januvia*) 50 Mg Tablet, 50 MG PO DAILY, #30 TAB 08/25/16 Glimepiride* (Glimepiride*) 4 Mg Tablet, 4 MG PO WITH BREAKFAST DINNE, TAB 08/25/16 Amlodipine Besylate* (Amlodipine Besylate*) 2.5 Mg Tablet, 2.5 MG PO DAILY, #30 TAB 08/25/16 Metformin Hcl* (Metformin Hcl*) 500 Mg Tablet, 500 MG PO WITH BREAKFAST DINNE, # 30 TAB 08/25/16 Lisinopril* (Lisinopril*) 20 Mg Tablet, 20 MG PO DAILY, #30 TAB 08/25/16 Multivitamin (MULTI VITAMIN DAILY) 1 Each Tablet, 1 EACH PO DAILY 10/06/12 Allergies Allergies: Coded Allergies: Metronidazole HCl (Verified Allergy, Unknown, UNKNOWN, 09/03/16) ampicillin (Verified Allergy, Unknown, UNKNOWN, 09/03/16) ciprofloxacin (Verified Allergy, Unknown, UNKNOWN, 09/03/16) ciprofloxacin HCl (Verified Allergy, Unknown, UNKNOWN, 09/03/16) metronidazole (Verified Allergy, Unknown, UNKNOWN, 09/03/16) PMhx/Soc History of Surgery: Yes Anesthesia Reaction: No Hx Neurological Disorder: No Hx Respiratory Disorders: No Hx Cardiac Disorders: No Hx Psychiatric Problems: No Hx Miscellaneous Medical Probl: No Hx Alcohol Use: No Hx Substance Use: No Hx Tobacco Use: No Smoking Status: Never smoker Physical Exam Vitals Vital Signs Date Time Temp Pulse Resp B/P Pulse Ox O2 Delivery O2 Flow Rate FiO2 09/03/16 09:53 97.9 79 19 138/69 100 Physical Exam Const: [] Moderate distress, appears very uncomfortable, ill-appearing Head: Atraumatic Eyes: Normal Conjunctiva, EOMI, RAFAEL ENT: Normal External Ears, Nose and Mouth. Neck: Full range of motion..~ No meningismus. Resp: Clear to auscultation bilaterally Cardio: Regular rate and rhythm, no murmurs Abd: Soft, mild epigastric tenderness,, non distended. Normal bowel sounds Skin: No petechiae or rashes Back: No midline or flank tenderness Ext: No cyanosis, or edema Neur: Awake and alert and oriented 3, no focal deficit Psych: Normal Mood and Affect Result Diagram: 09/03/16 1020 09/03/16 1020 Results 24 hrs Laboratory Tests Test 09/03/16 10:20 09/03/16 11:10 09/03/16 12:30 White Blood Count 26.410^3/ul Red Blood Count 3.9510^6/ul Hemoglobin 12.5g/dl Hematocrit 37.1% Mean Corpuscular Volume 93.9fl Mean Corpuscular Hemoglobin 31.6pg Mean Corpuscular Hemoglobin Concent 33.7g/dl Red Cell Distribution Width 13.4% Platelet Count 94615^3/UL Mean Platelet Volume 11.3fl Neutrophils % 77.6% Lymphocytes % 10.8% Monocytes % 6.6% Eosinophils % 4.0% Basophils % 0.2% Neutrophils # 20.510^3/ul Lymphocytes # 2.910^3/ul Monocytes # 1.710^3/ul Eosinophils # 1.110^3/ul Basophils # 0.110^3/ul Nucleated Red Blood Cells # 0.010^3/ul Prothrombin Time 12.2Sec Prothrombin Time Ratio 1.0 INR International Normalized Ratio 0.91 Activated Partial Thromboplast Time 24.7Sec Sodium Level 142mmol/L Potassium Level 5.1mmol/L Chloride Level 101mmol/L Carbon Dioxide Level 18mmol/L Anion Gap 28 Blood Urea Nitrogen 36mg/dl Creatinine 1.33mg/dl Glucose Level 194mg/dl Calcium Level 10.2mg/dl Total Bilirubin 0.1mg/dl Direct Bilirubin 0.00mg/dl Indirect Bilirubin 0.1mg/dl Aspartate Amino Transf (AST/SGOT) 38IU/L Alanine Aminotransferase (ALT/SGPT) 46IU/L Alkaline Phosphatase 69IU/L Troponin I < 0.012ng/ml Total Protein 7.7g/dl Albumin 4.5g/dl Globulin 3.20g/dl Albumin/Globulin Ratio 1.40 Lipase 248U/L Lactic Acid Level 3.3mmol/L Urine Color YELLOW Urine Clarity SLIGHTLY CLOUDY Urine pH 5.0 Urine Specific [place] 1.017 Urine Ketones TRACEmg/dL Urine Nitrite NEGATIVEmg/dL Urine Bilirubin NEGATIVEmg/dL Urine Urobilinogen NEGATIVEmg/dL Urine Leukocyte Esterase NEGATIVELeu/ul Urine Microscopic RBC 1/HPF Urine Microscopic WBC 1/HPF Urine Hemoglobin NEGATIVEmg/dL Urine Glucose NEGATIVEmg/dL Urine Total Protein NEGATIVEmg/dl Current Medications Medications (Trade) Dose Ordered Sig/Chayo Route PRN Reason Start Time Stop Time Status Last Admin Dose Admin Sodium Chloride (NS) 1,000 ml @ 1,000 mls/hr Q1H STAT IV 09/03/16 09:57 09/03/16 10:56 DC 09/03/16 10:42 Ondansetron HCl 4 mg 4 mg ONCE STAT IV 09/03/16 09:57 09/03/16 10:00 DC 09/03/16 10:43 Sodium Chloride 500 ml @ 500 mls/hr Q1H ONCE IV 09/03/16 12:00 09/03/16 12:59 DC 09/03/16 12:48 Cefepime HCl (Maxipime 2gm/50 ml (Pmx)) 50 ml @ 100 mls/hr ONCE STAT IVPB 09/03/16 13:37 09/03/16 14:06 DC Procedures/MDM Dehydrated patient possibly secondary to gastroenteritis patient also has a very high white count. He was treated with Levaquin last week so C. difficile is a possibility given her new diarrhea. If this returns positive she is alert Flagyl will need p.o. vancomycin as the only possible treatment. After speaking with patient's daughter I found out that she actually does have a new dry cough making a respiratory infection a possibility the patient has no acute process on chest x-ray. Patient was hydrated with normal saline. Cultures were taken and patient was started on cefepime. He was given Zofran for nausea. Chest x-ray interpretation: See no acute process, no infiltrates, no pulmonary edema, no pneumothorax, no fractures EKG interpretation: Normal sinus rhythm rate of 84, normal axis, incomplete right bundle branch block, no ST or T-wave changes concerning for acute ischemia. CT abdomen pelvis interpretation: This is currently pending. Departure Diagnosis: Primary Impression: Nausea and vomiting Additional Impressions: Generalized weakness Dehydration Lactic acidosis Renal insufficiency Condition: Stable LOYDA BLISS DO Sep 03, 2016 14:47
[2016-09-03] MEDS ORDERED: ONDANSETRON 4 MG INJ IV PRN ×2 (15:00→16:30)
[2016-09-03] MEDS ORDERED: ACETAMINOPHEN 325 MG TAB PO PRN ×2 (15:00→16:30)
--- NOTE | 2016-09-03 15:11 | RADRPT ---
PROCEDURE: CT Abdomen and Pelvis without contrast. CLINICAL INDICATION: Abdominal pain, bloating with vomiting. TECHNIQUE: CT scan of the abdomen and pelvis without contrast was performed on a multidetector hig h-resolution CT scanner. The patient was scanned without intravenous contrast. Coronal and sagittal reformatted images were obtained from the axial source images. Images were reviewed on a high-resol Chat[employer] ([employer]) PACS workstation. The total exam CTDI equals 8.1 mGy and the total exam DLP equals 450 mGy-cm. One or more of the following dose reduction techniques were used: Automated exposure control. Adjustment of the mA and/or kV according to patient size. Use of iterative reconstruction technique. COMPARISON: CT abdomen and pelvis 08/25/2016 FINDINGS: CT abdomen: The lung bases are clear. The heart size is normal, without pericardial thickening or effusion. Ther e are heavy mitral annulus calcifications. The liver is normal in size and density without focal mass or intrahepatic biliary dilatation. The s pleen is normal in size and homogeneous in density. The stomach is partially collapsed, but is gross ly unremarkable. The pancreas as visualized is normal. There is a punctate calcification in the head of the pancreas. There is no pancreatic ductal dilatation. There is no pancreatic atrophy. The gall bladder is surgically absent. There is no evidence for biliary dilatation. There is approximately 1 cm left adrenal adenoma. The kidneys are symmetrically unremarkable as well. No renal calculus or ob structive uropathy or mass lesion is seen. Mild prominent lymph nodes are seen in the upper abdomen measures up to 1.2 cm in short axis in the andrew hepatis. The aorta is of normal caliber. Aortic vascular calcifications are present. There is no retroperiton eal lymphadenopathy. The andrew hepatis region is clear. There is a small hiatal hernia. CT pelvis: The small bowel loops situated within the pelvis are unremarkable. The appendix is normal. The pelvi c organs are normal. The pelvic sidewalls and inguinal regions are clear. There are a few sigmoid di verticula without evidence of acute diverticulitis. No mass, lymphadenopathy, or free fluid is seen. No acute inflammation is seen. The surrounding osseous structures are remarkable for degenerative s pondylosis of the spine. No osteolytic or osteoblastic lesion is detected. IMPRESSION: 1. No mass, lymphadenopathy, or focal acute inflammatory process is identified. 2. Scattered sigmoid diverticula without evidence of acute diverticulitis. 3. Normal appendix. 4. Status post cholecystectomy. No biliary ductal dilatation. 5. Small hiatal hernia. 6. Mildly prominent upper abdominal lymph nodes. 7. Aortoiliac atherosclerosis. 8. Small left adrenal adenoma. RPTAT: BB .Sylvester Bowen MD, Date Time Electronically viewed and signed by .Sylvester Bowen MD, on 09/03/2016 15:11 .O/
[2016-09-03 16:16] VITALS: BP 105/52; PULSE 87; RESP 18
[2016-09-03] MEDS ORDERED: NACL 0.9% 3 ML SYG IV SCH (16:30)
[2016-09-03] MEDS ORDERED: DOCUSATE SODIUM 100 MG CAP PO PRN (16:30)
[2016-09-03] MEDS ORDERED: morphine 2 MG INJ IV PRN (16:30)
[2016-09-03] MEDS ORDERED: ZOLPIDEM 5 MG TAB PO PRN (16:30)
[2016-09-03] MEDS ORDERED: HYDROCODONE/APAP (5/325) TAB PO PRN (16:30)
[2016-09-03] MEDS ORDERED: GLUCAGON 1 MG INJ IM PRN (17:00)
[2016-09-03] MEDS ORDERED: GLUCOSE GEL 15 GRAM TUBE PO PRN ×2 (17:00)
[2016-09-03] MEDS ORDERED: DEXTROSE 50% 50 ML SYRINGE IV PRN ×2 (17:00)
[2016-09-03] MEDS ORDERED: GLUCOSE GEL 15 GRAM TUBE BUCCAL PRN (17:00)
--- NOTE | 2016-09-03 17:09 | HP ---
Date/Time of Note Date/Time of Note DATE: 09/03/16 TIME: 17:02 Assessment/Plan VTE Prophylaxis VTE Prophylaxis Intervention: SCD's Lines/Catheters IV Catheter Type (from [facility]): Mid Line Assessment/Plan Chief Complaint/Hosp Course 1. Sepsis secondary to gastroenteritis with nausea vomiting and diarrhea Follow-up on C. difficile and stool culture IV fluids 2. Dehydration secondary to diarrhea IV fluids 3. Acute kidney injury secondary dehydration IV fluids 4. Diabetes Hold p.o. meds and treat with subcu insulin 5. Hypertension Hold p.o. meds secondary to sepsis 6. History of coronary disease-no acute issues Prophylaxis: SCDs Problems: HPI/ROS Admit Date/Time Admit Date/Time Sep 03, 2016 at 14:50 Hx of Present Illness Patient is a 81 yo F with past medical history of DM2, CAD sp PCI, htn presenting. She was recently hospitalized for sepsis from UTI. Culture showed E. coli sensitive to multiple antibiotics and patient was put on Levaquin, patient did complete course of Levaquin after DC. Patient now presents with nausea vomiting as well as diarrhea for the past several days, she also endorses bloating which is relieved after episodes of emesis. In the ED patient 's lactic acid was noted to be elevated with severe leukocytosis. Patient has no other acute complaints at this time. ROS Constitutional: no complaints Respiratory: no complaints Cardiovascular: no complaints Gastrointestinal: diarrhea, vomiting Musculoskeletal: no complaints Skin: no complaints Neurologic: no complaints PMH/Family/Social Past Medical History DM2, CAD sp PCI, htn, UTI Past Surgical History Past Surgical Hx: cholecystectomy Family History Significant Family History: no pertinent family hx Social History Alcohol Use: none Smoking Status: Never smoker Drug Use: none Exam/Review of Systems Vital Signs Vitals Vital Signs Date Time Temp Pulse Resp B/P Pulse Ox O2 Delivery O2 Flow Rate FiO2 09/03/16 14:03 97.9 79 19 130/61 100 Room Air Exam Constitutional: alert Head: normocephalic Respiratory: clear to auscultation Cardiovascular: regular rate and rhythm Gastrointestinal: non-tender, soft, No distended Musculoskeletal: nl extremities to inspection Labs Result Diagram: 09/03/16 1020 09/03/16 1020 Medications Medications Current Medications Sodium Chloride (1/2 NS) 1,000 ml @ 100 mls/hr Q10H IV ; Start 09/03/16 at 16: 45 Ondansetron HCl (Zofran Inj) 4 mg Q6H PRN IV NAUSEA AND/OR VOMITING; Start at 16:30 Acetaminophen (Tylenol Tab) 650 mg Q6H PRN PO PAIN LEVEL 1-3 OR FEVER; Start at 16:30 Acetaminophen/ Hydrocodone Bitart ([place] (5/325)) 1 tab Q6H PRN PO MODERATE PAIN LEVEL 4-6; Start 09/03/16 at 16:30 Morphine Sulfate (morphine) 2 mg Q4H PRN IV SEVERE PAIN LEVEL 7-10; Start 09/03 at 16:30 Docusate Sodium (Colace) 100 mg Q12H PRN PO CONSTIPATION; Start 09/03/16 at 16: 30 Zolpidem Tartrate 5 mg 5 mg QHS PRN PO SLEEP; Start 09/03/16 at 16:30 Ceftriaxone Sodium (Rocephin) 50 ml @ 100 mls/hr Q24H IVPB ; Start 09/03/16 at 18:00 Cyanocobalamin (Vitamin B12) 100 mcg DAILY PO ; Start 09/04/16 at 09:00 Folic Acid (Folic Acid) 1 mg DAILY PO ; Start 09/04/16 at 09:00 Diagnostic Test (Pha) (Accu-Chek) 1 ea 02 XX ; Start 09/04/16 at 02:00 Insulin Glargine (Lantus) 11 unit DAILY@08 SC ; Start 09/04/16 at 08:00 Miscellaneous Information 1 ea NOTE XX ; Start 09/03/16 at 17:00 Glucose (Glutose) 15 gm Q15M PRN PO DECREASED GLUCOSE; Start 09/03/16 at 17:00 Glucose (Glutose) 22.5 gm Q15M PRN PO DECREASED GLUCOSE; Start 09/03/16 at 17: 00 Dextrose (D50w Syringe) 25 ml Q15M PRN IV DECREASED GLUCOSE; Start 09/03/16 at 17:00 Dextrose (D50w Syringe) 50 ml Q15M PRN IV DECREASED GLUCOSE; Start 09/03/16 at 17:00 Glucagon (Glucagen) 1 mg Q15M PRN IM DECREASED GLUCOSE; Start 09/03/16 at 17:00 Glucose (Glutose) 15 gm Q15M PRN BUCCAL DECREASED GLUCOSE; Start 09/03/16 at 17 :[address] abdomen pelvis: 1. No mass, lymphadenopathy, or focal acute inflammatory process is identified. 2. Scattered sigmoid diverticula without evidence of acute diverticulitis. 3. Normal appendix. 4. Status post cholecystectomy. No biliary ductal dilatation. 5. Small hiatal hernia. 6. Mildly prominent upper abdominal lymph nodes. 7. Aortoiliac atherosclerosis. 8. Small left adrenal adenoma. Chest x-ray: No evidence of an acute cardiopulmonary process. ERIKA DE LEÓN Sep 03, 2016 17:08
[2016-09-03 17:20] VITALS: Ht 157.5 cm; Wt 52.0 kg
[2016-09-03] MEDS: INSULIN ASPART [NOVOLOG] 3 ML PEN SC SCH ×3 (17:47→20:57)
[2016-09-03] MEDS: SOD CHLORIDE 0.45% 1,000 ML IV SCH (17:49)
[2016-09-03] MEDS ORDERED: CEFTRIAXONE 1 GM/50 ML (PMX) 50 ML IVPB SCH (18:00)
[2016-09-03] MEDS: VANCOMYCIN HCL 250 MG/5ML POSYG PO SCH ×2 (18:47→23:49)
[2016-09-03 20:00] VITALS: BP 108/55; RESP 20
[2016-09-03] MEDS ORDERED: metroNIDAZOLE 500 MG/NS (PMX) 100 ML IVPB SCH (22:00)
[2016-09-04 02:00] VITALS: BP 116/54; RESP 20
[2016-09-04] MEDS ORDERED: ACCU-CHEK XX SCH ×2 (02:00)
[2016-09-04] MEDS: SOD CHLORIDE 0.45% 1,000 ML IV SCH ×2 (03:33→12:45)
[2016-09-04] MEDS: VANCOMYCIN HCL 250 MG/5ML POSYG PO SCH (05:09)
[2016-09-04 06:10] LABS: BASOPHILS % 0.2 % (0.0-2.0); EOSINOPHILS % 8.5 % (0.0-7.0); HEMATOCRIT 28.4 % (37.0-47.0); HEMOGLOBIN 9.5 g/dl (12.0-16.0); LYMPHOCYTES # 3.5 10^3/ul (0.8-2.9); LYMPHOCYTES % 31.3 % (15.0-51.0); MEAN CORPUSCULAR HEMOGLOBIN 31.5 pg (29.0-33.0); MEAN CORPUSCULAR HGB CONC 33.5 g/dl (32.0-37.0); MEAN PLATELET VOLUME 10.2 fl (7.4-10.4); MONOCYTE # 0.6 10^3/ul (0.3-0.9); MONOCYTES % 5.7 % (0.0-11.0); NEUTROPHIL # 6.1 10^3/ul (1.6-7.5); NEUTROPHILS % 53.8 % (39.0-77.0); PLATELET COUNT 175 10^3/UL (140-415); RED BLOOD COUNT 3.02 10^6/ul (4.20-5.40); RED CELL DISTRIBUTION WIDTH 13.6 % (11.5-14.5); WHITE BLOOD COUNT 11.3 10^3/ul (4.8-10.8)
[2016-09-04 06:54] LABS: CALCIUM 8.5 mg/dl (8.4-10.2); CREATININE 0.97 mg/dl (0.44-1.00); MAGNESIUM 1.2 mg/dl (1.7-2.5); PHOSPHORUS 3.6 mg/dl (2.5-4.9); POTASSIUM 4.3 mmol/L (3.5-5.1)
[2016-09-04] MEDS: INSULIN ASPART [NOVOLOG] 3 ML PEN SC SCH ×4 (07:59→11:28)
[2016-09-04 08:00] VITALS: BP 112/58; RESP 20
[2016-09-04] MEDS ORDERED: INSULIN GLARGINE [LANtus] 3 ML PEN SC SCH (08:00)
[2016-09-04] MEDS ORDERED: CYANOCOBALAMIN 100 MCG TAB PO SCH (09:00)
[2016-09-04] MEDS ORDERED: FOLIC ACID 1 MG TAB PO SCH (09:00)
[2016-09-04] MEDS ORDERED: MAGNESIUM SULFATE 4 GM/100 ML 100 ML IVPB ONE (11:00)
--- NOTE | 2016-09-04 13:23 | PDOCDIS ---
Discharge Instructions CONDITION Patient Condition: Good HOME CARE INSTRUCTIONS: Special Diet: diabetic carb control ACTIVITY: Activity Restrictions: No Restrictions FOLLOW UP/APPOINTMENTS Follow-up Plan FOLLOW UP WITH YOUR PRIMARY CARE PHYSICIAN IN 1-2 WEEKS ERIKA DE LEÓN Sep 04, 2016 13:23
--- NOTE | 2016-09-04 13:32 | DS ---
Date/Time of Note Date/Time of Note DATE: 09/04/16 TIME: 13:26 Discharge Summary Admission/Discharge Info Admit Date/Time Sep 03, 2016 at 14:50 Discharge Date/Time September 04, 2016 Discharge Diagnosis 1. Sepsis secondary to gastroenteritis with nausea vomiting and diarrhea- resolving C. difficile is negative No indication for antibiotics as UA is normal 2. Dehydration secondary to diarrhea Status post IV fluids 3. Acute kidney injury secondary dehydration-resolved Status post IV fluids 4. Diabetes Resume home meds 5. Hypertension Resume home meds if BP tolerates 6. History of coronary disease-no acute issues Hospital Course Patient is a 81 yo F with past medical history of DM2, CAD sp PCI, htn presenting. She was recently hospitalized for sepsis from UTI. Culture showed E. coli sensitive to multiple antibiotics and patient was put on Levaquin, patient did complete course of Levaquin after DC. Patient now presents with nausea vomiting as well as diarrhea for the past several days, she also endorses bloating which is relieved after episodes of emesis. In the ED patient 's lactic acid was noted to be elevated with severe leukocytosis. Patient was tested for C. difficile and was negative. Patient had acute kidney injury which was secondary to dehydration and resolved with IV fluids. Patient was doing better on the day of discharge she denies any nausea vomiting and diarrhea decreased in frequency. Patient was also have diarrhea secondary to recent bout of antibiotics once again C. difficile was negative and she was recommended to start probiotics upon DC. Patient magnesium was repleted on the day of discharge as it was low. The day of discharge patient's vitals remaining labs and physical exam are stable, she had no acute complaints and questions are answered. Home Meds Reported Medications Cholecalciferol* (Vitamin D3*) 1,000 Unit Tablet, 1000 UNIT PO DAILY, TAB 08/25/16 Cyanocobalamin* (Vitamin B12*) 100 Mcg Tab, 100 MCG PO DAILY, TAB 08/25/16 Folic Acid* (Folic Acid*) 1 Mg Tablet, 1 MG PO DAILY, TAB 08/25/16 Rosuvastatin Calcium* (Crestor*) 5 Mg Tablet, 5 MG PO ON FRIDAYS, #30 TAB 08/25/16 Metoprolol Succinate* (Toprol XL*) 25 Mg Tab.sr.24h, 25 MG PO DAILY, #30 TAB 08/25/16 Sitagliptin* (Januvia*) 50 Mg Tablet, 50 MG PO DAILY, #30 TAB 08/25/16 Glimepiride* (Glimepiride*) 4 Mg Tablet, 4 MG PO WITH BREAKFAST DINNE, TAB 08/25/16 Amlodipine Besylate* (Amlodipine Besylate*) 2.5 Mg Tablet, 2.5 MG PO DAILY, #30 TAB 08/25/16 Metformin Hcl* (Metformin Hcl*) 500 Mg Tablet, 500 MG PO WITH BREAKFAST DINNE, # 30 TAB 08/25/16 Lisinopril* (Lisinopril*) 20 Mg Tablet, 20 MG PO DAILY, #30 TAB 08/25/16 Multivitamin (MULTI VITAMIN DAILY) 1 Each Tablet, 1 EACH PO DAILY 10/06/12 Discontinued Scripts Levofloxacin* (Levaquin*) 750 Mg Tablet, 750 MG PO DAILY for 4 Days, #4 TAB Prov:LEAH CANELA MD 08/28/16 Follow-up Plan Follow-up PCP in 1-2 weeks Primary Care Provider Honey Arreguin Time spent on discharge: > 30 minutes ERIKA DE LEÓN Sep 04, 2016 13:32
[2016-09-04 14:00] VITALS: BP 124/57; RESP 20
== END 2016-09-04 16:50 | disposition home or self-care (01) | DRG 872 ==
LOC: E/R 09:43 → PP2 14:50
PROVIDERS: ADMIT Internal Medicine; ATTEND Internal Medicine
DX: A41.89 Other specified sepsis (principal); N17.9 Acute kidney failure, unspecified; A09 Infectious gastroenteritis and colitis, unspecified; E86.0 Dehydration; E11.9 Type 2 diabetes mellitus without complications; I10 Essential (primary) hypertension; I25.10 Atherosclerotic heart disease of native coronary artery without angina pectoris; Z95.5 Presence of coronary angioplasty implant and graft; Z87.440 Personal history of urinary (tract) infections
CPT/HCPCS: 36415; 71010; 74176; 80048; 80053; 81001; 81003; 82962; 83605; 83690; 83735; 84100; 84484; 85025; 85610; 85730; 87040; 87045; 87075; 87081; 87086; 93005; 96374; 96375; J0692; J1815; J2405; J3420; J7030; J7040

== ENCOUNTER 2017-07-15 11:28 | Inpatient (IN) | END 2017-07-17 17:19 | disposition home or self-care (01) | DRG 872 ==

== ENCOUNTER 2017-09-05 22:21 | Inpatient (IN) | END 2017-09-07 18:00 | disposition home or self-care (01) | DRG 638 ==

== ENCOUNTER 2017-10-13 14:33 | Inpatient (IN) | END 2017-10-14 17:53 | disposition home or self-care (01) | DRG 682 ==